=== PATIENT | male | born 1975 | race Caucasian/White ===

== ENCOUNTER 2017-08-25 08:55 | Emergency (ER) | payer OTHER ==
[~2017-08-25] VITALS: Wt 108.9 kg
[~2017-08-25 08:55] MED LIST: AMOXICILLIN500 MG PO; ANAPROX DS550 MG PO; ATARAX25 MG PO; AUGMENTIN 875875 MG PO; BACTRIM DS 8001 TA1 PO; CATAFLAM50 MG PO; CIPRO500 MG PO; CLARITIN10 MG PO; COMBIVENT1 ARO IH; CYCLOBENZAPRINE10 MG PO; DAYPRO600 M1 PO; FLEXERIL10 MG PO; HYDROCODONE BIT1 T11 PO; KEFLEX500 MG PO; MEDROL DOSEPAK4 MG PO; MOTRIN800 MG PO; NKHM; NORCO 325 MG-51 TAB PO; NORCO 5-325 TA1 EACH PO; PERCOCET 325 MG1 TA2 PO; PERCOCET 325 MG1 TA7 PO; PRILOSEC20 MG PO; PRILOSEC40 MG PO; PROAIR HFA8.5 GM INH; ROBAXIN750 MG PO; SEPTRA DS 800 M1 TAB PO; TRAMADOL HCL50 MG PO; ULTRAM50 MG PO; VICODIN 5/500 505 MG; VICODIN 5/500 505 MG PO; VICODIN ES 7501 TAB PO; VOLTAREN50 M1 PO; VOLTAREN75 MG PO; WELLBUTRIN75 MG PO; ZITHROMAX Z PA250 MG PO
[2017-08-25 09:06] VITALS: BP 120/72
[2017-08-25] MEDS ORDERED: ZITHROMAX250 MG PO (10:07)
[2017-08-25] MEDS ORDERED: DELTASONE20 M1 PO (10:07)
== END 2017-08-25 10:35 | disposition home or self-care (01) ==
LOC: ED 08:55
DX: J44.1 Chronic obstructive pulmonary disease with (acute) exacerbation (principal); F17.200 Nicotine dependence, unspecified, uncomplicated; Z91.030 Bee allergy status; Z79.899 Other long term (current) drug therapy

== ENCOUNTER 2017-11-10 20:02 | Emergency (ER) | payer OTHER ==
[~2017-11-10] VITALS: Ht 185.4 cm; Wt 113.4 kg
[~2017-11-10 20:02] MED LIST changes: +DELTASONE20 M1 PO; +ZITHROMAX250 MG PO
[2017-11-10 20:06] VITALS: BP 136/789
[2017-11-10] MEDS ORDERED: PROAIR HFA8.5 GM INH (20:14)
[2017-11-10] MEDS ORDERED: PREDNISONE20 M1 PO (20:14)
== END 2017-11-10 20:30 | disposition home or self-care (01) ==
LOC: ED 20:02
DX: S61.412A Laceration without foreign body of left hand, initial encounter (principal); J44.1 Chronic obstructive pulmonary disease with (acute) exacerbation; F17.200 Nicotine dependence, unspecified, uncomplicated; Z79.899 Other long term (current) drug therapy; Z91.030 Bee allergy status; W45.8XXA Other foreign body or object entering through skin, initial encounter; Y93.89 Activity, other specified; Y92.89 Other specified places as the place of occurrence of the external cause; Y99.9 Unspecified external cause status

== ENCOUNTER 2017-12-14 00:08 | Emergency (ER) | payer OTHER ==
[~2017-12-14] VITALS: Ht 185.4 cm; Wt 108.9 kg
[~2017-12-14 00:08] MED LIST changes: +PREDNISONE20 M1 PO
[2017-12-14 00:09] VITALS: BP 129/82
[2017-12-14 00:35] LABS: BASO # 0.1 10*3/uL (0.0-0.1); BASO % 0.7 % (0.0-1.0); EOS # 0.3 10*3/uL (0.0-0.4); EOS % 2.5 % (1.0-4.0); HEMATOCRIT 50.3 % (42.0-52.0); HEMOGLOBIN 16.3 g/dl (14.0-18.0); LYMPH # 2.5 10*3/uL (1.3-4.4); LYMPH % 24.9 % (27.0-41.0); MEAN CELL VOLUME 95.6 fl (80.0-94.0); MEAN CORPUSCULAR HGB CONC 32.4 g/dl (33.0-37.0); MEAN PLATELET VOLUME 10.9 fl (9.6-12.3); MONO # 0.9 10*3/uL (0.1-1.0); MONO % 8.9 % (3.0-9.0); NEUT # 6.4 10*3/uL (2.3-7.9); NEUT % 62.5 % (47.0-73.0); PLATELET COUNT AUTOMATED 230 10*3/uL (130-400); RED BLOOD COUNT 5.26 10*6/uL (4.50-5.90); RED CELL DISTRI WIDTH 14.3 % (0-14.5); WHITE BLOOD COUNT 10.2 10*3/uL (4.8-10.8)
[2017-12-14 00:46] LABS: ACT PARTIAL THROMBO TIME 27.4 SECONDS (20.8-31.5); INTERNATIONAL NORM RATIO 0.9 (2.0-3.5)
[2017-12-14 00:52] LABS: ALBUMIN 3.3 gm/dl (3.1-4.5); ALKALINE PHOSPHATASE 115 U/L (45-117); BUN 10 mg/dl (7-24); CHLORIDE 103 mmol/L (98-107); CREATININE 0.99 mg/dL (0.70-1.30); LIPASE 138 U/L (73-393); POTASSIUM 4.1 mmol/L (3.5-5.1); SGOT/AST 25 IU/L (3-35); SGPT/ALT 23 U/L (12-78); SODIUM 137 mmol/L (136-145); TOTAL PROTEIN 7.6 gm/dL (6.4-8.2)
[2017-12-14 00:53] LABS: TROPONIN I < 0.015 ng/ml (<0.045)
[2017-12-14] MEDS ORDERED: AUGMENTIN 875875 MG PO (01:26)
[2017-12-14] MEDS ORDERED: PROAIR HFA8.5 GM INH (01:26)
[2017-12-14] MEDS ORDERED: MEDROL DOSEPAK4 MG PO (01:26)
== END 2017-12-14 01:36 | disposition home or self-care (01) ==
LOC: ED 00:08
PROVIDERS: Nurse Practitioner Family
DX: J45.901 Unspecified asthma with (acute) exacerbation (principal); J44.9 Chronic obstructive pulmonary disease, unspecified; Z91.030 Bee allergy status; Z79.899 Other long term (current) drug therapy

== ENCOUNTER → 2018-02-02 | Outpatient (CLI) | payer OTHER | END | disposition home or self-care (01) | LOC: RESCLI 10:40 | DX: K21.9 Gastro-esophageal reflux disease without esophagitis (principal); J43.9 Emphysema, unspecified; E66.3 Overweight; F19.90 Other psychoactive substance use, unspecified, uncomplicated; F17.210 Nicotine dependence, cigarettes, uncomplicated; Z76.89 Persons encountering health services in other specified circumstances; Z71.6 Tobacco abuse counseling ==

== ENCOUNTER → 2018-04-20 | Outpatient (CLI) | payer OTHER | END | disposition home or self-care (01) | LOC: RESCLI 01:24 | DX: Z00.01 Encounter for general adult medical examination with abnormal findings (principal); K21.9 Gastro-esophageal reflux disease without esophagitis; J45.20 Mild intermittent asthma, uncomplicated; M25.532 Pain in left wrist; M25.432 Effusion, left wrist; F17.200 Nicotine dependence, unspecified, uncomplicated; Z79.899 Other long term (current) drug therapy; Z71.6 Tobacco abuse counseling; Z88.8 Allergy status to other drugs, medicaments and biological substances ==

== ENCOUNTER 2020-08-16 18:47 | Emergency (ER) | payer OTHER ==
[~2020-08-16] VITALS: Ht 185.4 cm; Wt 113.4 kg
[2020-08-16 18:51] VITALS: BP 152/90
[2020-08-16] MEDS ORDERED: NAPROSYN500 MG PO (20:06)
== END 2020-08-16 20:08 | disposition home or self-care (01) ==
LOC: ED 18:47
DX: S20.20XA Contusion of thorax, unspecified, initial encounter (principal); S60.211A Contusion of right wrist, initial encounter; K21.9 Gastro-esophageal reflux disease without esophagitis; J44.9 Chronic obstructive pulmonary disease, unspecified; F17.200 Nicotine dependence, unspecified, uncomplicated; Z91.030 Bee allergy status; Z79.899 Other long term (current) drug therapy; W10.8XXA Fall (on) (from) other stairs and steps, initial encounter; Y93.89 Activity, other specified; Y92.89 Other specified places as the place of occurrence of the external cause; Y99.8 Other external cause status

== ENCOUNTER 2020-12-16 15:56 | Inpatient (IN) | payer OTHER ==
[~2020-12-16] VITALS: Ht 182.9 cm; Wt 102.3 kg
[~2020-12-16 15:56] MED LIST changes: +NAPROSYN500 MG PO
[2020-12-16 16:00] VITALS: BP 152/94
[2020-12-16 17:17] LABS: BASO % 0.3 % (0.0-1.0); EOS # 0.1 10*3/uL (0.0-0.4); EOS % 1.1 % (1.0-4.0); HEMATOCRIT 45.6 % (42.0-52.0); LYMPH % 8.5 % (27.0-41.0); MEAN CELL VOLUME 103.6 fl (80.0-94.0); MEAN CORPUSCULAR HGB 34.1 pg (27.0-31.0); MEAN CORPUSCULAR HGB CONC 32.9 g/dl (33.0-37.0); MEAN PLATELET VOLUME 10.3 fl (9.6-12.3); MONO # 0.5 10*3/uL (0.1-1.0); MONO % 4.5 % (3.0-9.0); NEUT % 85.3 % (47.0-73.0); PLATELET COUNT AUTOMATED 280 10*3/uL (130-400); RED CELL DISTRI WIDTH 14.6 % (0-14.5); WHITE BLOOD COUNT 11.7 10*3/uL (4.8-10.8)
[2020-12-16 17:32] LABS: ALBUMIN 3.2 gm/dl (3.1-4.5); ALKALINE PHOSPHATASE 118 U/L (45-117); BUN 10 mg/dl (7-24); CHLORIDE 111 mmol/L (98-107); CREATININE 1.08 mg/dL (0.70-1.30); LIPASE 175 U/L (73-393); POTASSIUM 3.8 mmol/L (3.5-5.1); SGOT/AST 27 IU/L (3-35); SGPT/ALT 29 U/L (12-78); SODIUM 141 mmol/L (136-145); TOTAL PROTEIN 6.9 gm/dL (6.4-8.2)
[2020-12-16 22:02] VITALS: BP 138/72
[2020-12-17 01:27] VITALS: BP 124/73
[2020-12-17 01:35] VITALS: BP 138/87
[2020-12-17] MEDS ORDERED: PRILOSEC20 M1 PO (01:47)
[2020-12-17 06:35] LABS: BASO % 0.5 % (0.0-1.0); EOS # 0.2 10*3/uL (0.0-0.4); EOS % 2.3 % (1.0-4.0); HEMATOCRIT 40.4 % (42.0-52.0); LYMPH # 2.7 10*3/uL (1.3-4.4); LYMPH % 30.3 % (27.0-41.0); MEAN CELL VOLUME 105.2 fl (80.0-94.0); MEAN CORPUSCULAR HGB 34.1 pg (27.0-31.0); MEAN CORPUSCULAR HGB CONC 32.4 g/dl (33.0-37.0); MEAN PLATELET VOLUME 10.7 fl (9.6-12.3); MONO # 0.7 10*3/uL (0.1-1.0); MONO % 7.5 % (3.0-9.0); NEUT # 5.2 10*3/uL (2.3-7.9); NEUT % 58.9 % (47.0-73.0); PLATELET COUNT AUTOMATED 244 10*3/uL (130-400); RED BLOOD COUNT 3.84 10*6/uL (4.50-5.90); RED CELL DISTRI WIDTH 14.6 % (0-14.5); WHITE BLOOD COUNT 8.8 10*3/uL (4.8-10.8)
[2020-12-17 07:00] LABS: ALBUMIN 2.7 gm/dl (3.1-4.5); BUN 7 mg/dl (7-24); CHLORIDE 110 mmol/L (98-107); POTASSIUM 3.5 mmol/L (3.5-5.1); SGOT/AST 18 IU/L (3-35); SGPT/ALT 21 U/L (12-78); SODIUM 140 mmol/L (136-145)
[2020-12-17 07:07] LABS: ALKALINE PHOSPHATASE 90 U/L (45-117); CHOLESTEROL 123 mg/dL (<200); LDL CHOLESTEROL 43 mg/dL (9-159); TOTAL PROTEIN 5.6 gm/dL (6.4-8.2); TRIGLYCERIDES 115 mg/dl (<150)
[2020-12-17 07:53] LABS: VITAMIN D, 25-HYDROXY 23.4 ng/mL (30-100)
[2020-12-17 08:11] VITALS: BP 131/77
[2020-12-17 12:26] VITALS: BP 137/85
[2020-12-17 16:23] VITALS: BP 124/75
[2020-12-17 20:00] VITALS: BP 134/75
[2020-12-18] VITALS: BP 140/90
[2020-12-18 06:25] LABS: BASO # 0.1 10*3/uL (0.0-0.1); BASO % 0.6 % (0.0-1.0); EOS # 0.2 10*3/uL (0.0-0.4); EOS % 2.5 % (1.0-4.0); HEMATOCRIT 41.1 % (42.0-52.0); LYMPH # 2.7 10*3/uL (1.3-4.4); LYMPH % 31.9 % (27.0-41.0); MEAN CELL VOLUME 103.8 fl (80.0-94.0); MEAN CORPUSCULAR HGB 34.6 pg (27.0-31.0); MEAN CORPUSCULAR HGB CONC 33.3 g/dl (33.0-37.0); MEAN PLATELET VOLUME 10.4 fl (9.6-12.3); MONO # 0.7 10*3/uL (0.1-1.0); MONO % 7.9 % (3.0-9.0); NEUT # 4.9 10*3/uL (2.3-7.9); NEUT % 56.7 % (47.0-73.0); PLATELET COUNT AUTOMATED 255 10*3/uL (130-400); RED BLOOD COUNT 3.96 10*6/uL (4.50-5.90); WHITE BLOOD COUNT 8.6 10*3/uL (4.8-10.8)
[2020-12-18 06:56] LABS: ALBUMIN 2.9 gm/dl (3.1-4.5); BUN 4 mg/dl (7-24); CHLORIDE 110 mmol/L (98-107); CREATININE 0.83 mg/dL (0.70-1.30); LIPASE 115 U/L (73-393); POTASSIUM 3.4 mmol/L (3.5-5.1); SGPT/ALT 21 U/L (12-78); SODIUM 143 mmol/L (136-145)
[2020-12-18 07:01] LABS: ALKALINE PHOSPHATASE 86 U/L (45-117); SGOT/AST 15 IU/L (3-35); TOTAL PROTEIN 5.7 gm/dL (6.4-8.2)
[2020-12-18 08:00] VITALS: BP 132/92
[2020-12-18 12:00] VITALS: BP 134/88
[2020-12-18] MEDS ORDERED: B-1100 M1 PO (12:21)
[2020-12-18] MEDS ORDERED: VITAMIN D250 MCG PO (12:21)
== END 2020-12-18 12:34 | disposition home or self-care (01) | DRG 282 ==
LOC: ED 15:56 → EDHOLD 22:31 → 5E 22:31
PROVIDERS: Hospitalist; Physician Assistant; ADMIT Internal Medicine; ATTEND Internal Medicine
DX: K85.90 Acute pancreatitis without necrosis or infection, unspecified (principal); K21.9 Gastro-esophageal reflux disease without esophagitis; F10.10 Alcohol abuse, uncomplicated; J44.9 Chronic obstructive pulmonary disease, unspecified; E44.1 Mild protein-calorie malnutrition; E87.8 Other disorders of electrolyte and fluid balance, not elsewhere classified; R79.82 Elevated C-reactive protein (CRP); D72.829 Elevated white blood cell count, unspecified; F17.210 Nicotine dependence, cigarettes, uncomplicated; Z79.899 Other long term (current) drug therapy; Z71.41 Alcohol abuse counseling and surveillance of alcoholic; Z68.30 Body mass index [BMI] 30.0-30.9, adult

== ENCOUNTER 2022-06-16 13:03 | Emergency (ER) | payer OTHER ==
[~2022-06-16] VITALS: Ht 182.8 cm; Wt 104.3 kg
[~2022-06-16 13:03] MED LIST changes: +B-1100 M1 PO; +PRILOSEC20 M1 PO; +VITAMIN D250 MCG PO
[2022-06-16 13:14] VITALS: BP 148/96
[2022-06-16] MEDS ORDERED: MEDROL DOSEPAK4 MG PO (14:46)
[2022-06-16] MEDS ORDERED: TRAMADOL HCL50 MG PO (14:46)
== END 2022-06-16 14:51 | disposition home or self-care (01) ==
LOC: ED 13:03
DX: M77.8 Other enthesopathies, not elsewhere classified (principal); F17.200 Nicotine dependence, unspecified, uncomplicated; F10.10 Alcohol abuse, uncomplicated; Z98.890 Other specified postprocedural states

== ENCOUNTER 2022-07-07 17:58 | Emergency (ER) | payer OTHER ==
[~2022-07-07] VITALS: Wt 99.8 kg
[2022-07-07 18:06] VITALS: BP 154/106
[2022-07-07 18:27] LABS: BASO # 0.1 10*3/uL (0.0-0.1); BASO % 0.8 % (0.0-1.0); EOS # 0.3 10*3/uL (0.0-0.4); EOS % 2.9 % (1.0-4.0); HEMATOCRIT 51.2 % (42.0-52.0); LYMPH % 29.6 % (27.0-41.0); MEAN CELL VOLUME 95.7 fl (80.0-94.0); MEAN CORPUSCULAR HGB 31.2 pg (27.0-31.0); MEAN CORPUSCULAR HGB CONC 32.6 g/dl (33.0-37.0); MEAN PLATELET VOLUME 10.5 fl (9.6-12.3); MONO # 0.7 10*3/uL (0.1-1.0); MONO % 6.5 % (3.0-9.0); PLATELET COUNT AUTOMATED 265 10*3/uL (130-400); RED BLOOD COUNT 5.35 10*6/uL (4.50-5.90); RED CELL DISTRI WIDTH 14.6 % (0-14.5)
[2022-07-07 18:42] LABS: ALKALINE PHOSPHATASE 109 U/L (46-116); BUN 6 mg/dl (9-23); CHLORIDE 103 mmol/L (98-107); LIPASE 30 U/L (12-53); POTASSIUM 3.9 mmol/L (3.4-5.1); SGPT/ALT < 7 U/L (10-49)
[2022-07-07 18:43] LABS: ACT PARTIAL THROMBO TIME 29.6 SECONDS (20.0-32.1)
[2022-07-07] MEDS ORDERED: AMOX-CLAV 875-1 EACH PO (22:10)
== END 2022-07-07 22:33 | disposition home or self-care (01) ==
LOC: ED 17:58
PROVIDERS: Emergency Medicine
DX: S05.01XA Injury of conjunctiva and corneal abrasion without foreign body, right eye, initial encounter (principal); J32.9 Chronic sinusitis, unspecified; Z79.899 Other long term (current) drug therapy; F17.200 Nicotine dependence, unspecified, uncomplicated; X58.XXXA Exposure to other specified factors, initial encounter; Y93.89 Activity, other specified; Y92.89 Other specified places as the place of occurrence of the external cause; Y99.8 Other external cause status

== ENCOUNTER 2022-09-08 12:43 | Emergency (ER) | payer OTHER ==
[~2022-09-08] VITALS: Ht 182.8 cm
[~2022-09-08 12:43] MED LIST changes: +AMOX-CLAV 875-1 EACH PO
[2022-09-08 12:51] VITALS: BP 151/94
[2022-09-08] MEDS ORDERED: ELIMITE 5%60 GM T (13:09)
[2022-09-08] MEDS ORDERED: PREDNISONE10 MG PO (13:09)
== END 2022-09-08 14:32 | disposition home or self-care (01) ==
LOC: ED 12:43
DX: T78.40XA Allergy, unspecified, initial encounter (principal); R21 Rash and other nonspecific skin eruption; K21.9 Gastro-esophageal reflux disease without esophagitis; J44.9 Chronic obstructive pulmonary disease, unspecified; Z98.890 Other specified postprocedural states; F10.10 Alcohol abuse, uncomplicated; F17.200 Nicotine dependence, unspecified, uncomplicated; X58.XXXA Exposure to other specified factors, initial encounter

== ENCOUNTER 2022-12-24 13:21 | Emergency (ER) | payer OTHER ==
[~2022-12-24] VITALS: Ht 182.8 cm; Wt 99.8 kg
[~2022-12-24 13:21] MED LIST changes: +ELIMITE 5%60 GM T; +PREDNISONE10 MG PO
[2022-12-24 13:29] VITALS: BP 150/98
[2022-12-24] MEDS ORDERED: IBU800 MG PO (13:51)
== END 2022-12-24 14:44 | disposition home or self-care (01) ==
LOC: ED 13:21
DX: M79.672 Pain in left foot (principal); K21.9 Gastro-esophageal reflux disease without esophagitis; J44.9 Chronic obstructive pulmonary disease, unspecified; Z98.890 Other specified postprocedural states; F10.10 Alcohol abuse, uncomplicated; F17.200 Nicotine dependence, unspecified, uncomplicated

== ENCOUNTER → 2023-04-02 | Outpatient (CLI) | payer OTHER ==
[~2023-04-02] MED LIST changes: +IBU800 MG PO
== END | disposition home or self-care (01) ==
LOC: ORTHO 00:25
PROVIDERS: ATTEND Orthopaedic Surgery
DX: M19.031 Primary osteoarthritis, right wrist (principal); M25.831 Other specified joint disorders, right wrist